=== PATIENT | female | born 1970 | race Hispanic/Latino ===

== ENCOUNTER 2018-11-29 17:49 | Emergency (ER) | payer SELFPAY ==
[2018-11-29] MEDS ORDERED: predniSONE 20 MG TAB ONE (18:54)
[2018-11-29] MEDS ORDERED: Cyclobenzaprine 10 MG TAB ONE (18:54)
[2018-11-29] MEDS ORDERED: Ketorolac Tromethamine 60 MG/2 ML VIAL ONE (19:09)
== END 2018-11-29 19:20 | disposition home or self-care (01) ==
LOC: SCSER 17:49
DX: M54.12 Radiculopathy, cervical region (principal); M75.52 Bursitis of left shoulder
CPT/HCPCS: 93005; 96372; J1885; J7512

== ENCOUNTER 2020-10-22 12:41 | Observation (INO) | payer OTHER ==
[~2020-10-22 12:41] MED LIST: Iopamidol-370 76% 500 ML 1 ML ONE
[2020-10-22 13:35] LABS: Hemoglobin 14.2 g/dL (12.0-16.0); Mean Corpuscular HGB CONC 34.3 g/dL (32.0-36.0); Mean Corpuscular Hemoglobin 30.4 pg (27.0-31.0); Mean Corpuscular Volume 88.5 fL (78.0-98.0); Mean Platelet Volume 9.5 fL (7.4-10.4); Platelet Count 159 thou/uL (130-400); Red Blood Cell (RBC) Count 4.68 mill/uL (4.20-5.40); White Blood Cell (WBC) Count 3.9 thou/uL (4.8-10.8)
[2020-10-22 13:51] LABS: ALT (SGPT) 15 U/L (8-55); AST (SGOT) 20 U/L (5-34); Alkaline Phosphatase 96 U/L (40-110); Anion Gap 13 mmol/L (10-20); BUN (Urea Nitrogen) 6 mg/dL (7.0-18.7); Bilirubin, Total 0.3 mg/dL (0.2-1.2); Calc. Creatinine Clearance 0 mL/min (70-130); Carbon Dioxide 27 mmol/L (22-29); Chloride 105 mmol/L (98-107); Globulin 3.5 g/dL (2.4-3.5); Glucose 101 mg/dL (70-105); Potassium 3.7 mmol/L (3.5-5.1); Protein, Total 7.5 g/dL (6.0-8.3); Sodium 141 mmol/L (136-145)
[2020-10-22 13:56] LABS: Band 3 % (5-11); Lymphocytes 28 % (21-51); MDiff Complete? YES; Monocytes 16 % (0-10); Neutrophil 42 % (42-75); Platelet Morphology Comment Appears Adequate; RBC Morphology Normal; Reactive Lymphocytes 11 % (0-10)
[2020-10-22] MEDS ORDERED: Metoclopramide HCl 10 MG/2 ML VIAL ONE (13:56)
[2020-10-22] MEDS ORDERED: diphenhydrAMINE 50 MG/ML VIAL ONE (13:56)
[2020-10-22] MEDS ORDERED: Ketorolac Tromethamine 30 MG/ML VIAL ONE (13:56)
[2020-10-22] MEDS ORDERED: Aspirin 325 MG TAB ONE (18:26)
[2020-10-22 20:44] VITALS: BMI 26.8
[2020-10-22] MEDS ORDERED: Ondansetron PF 4 MG/2 ML Vial IVP PRN (22:03)
[2020-10-22] MEDS ORDERED: Ondansetron ODT 4 MG TAB PO PRN (22:03)
[2020-10-22] MEDS ORDERED: Acetaminophen 325 MG TAB PO PRN (22:03)
[2020-10-22] MEDS: HYDROcodone/Acetaminophen 5/325 mg Tablet PO PRN (22:42)
[2020-10-23] MEDS: HYDROcodone/Acetaminophen 5/325 mg Tablet PO PRN ×3 (04:50→13:16)
[2020-10-23 05:01] LABS: Hemoglobin 12.7 g/dL (12.0-16.0); Mean Corpuscular HGB CONC 34.3 g/dL (32.0-36.0); Mean Corpuscular Hemoglobin 30.6 pg (27.0-31.0); Mean Corpuscular Volume 89.3 fL (78.0-98.0); Mean Platelet Volume 9.6 fL (7.4-10.4); Platelet Count 154 thou/uL (130-400); Red Blood Cell (RBC) Count 4.15 mill/uL (4.20-5.40); White Blood Cell (WBC) Count 4.5 thou/uL (4.8-10.8)
[2020-10-23 05:15] LABS: Anion Gap 13 mmol/L (10-20); BUN (Urea Nitrogen) 11 mg/dL (7.0-18.7); Calc. Creatinine Clearance 111 mL/min (70-130); Calcium 8.8 mg/dL (7.8-10.44); Carbon Dioxide 28 mmol/L (22-29); Cardiac Risk 4.1 (Less than 4.5); Chloride 105 mmol/L (98-107); Cholesterol 157 mg/dl (< 200 Desired); Glucose 102 mg/dL (70-105); HDL Cholesterol 38 mg/dL (>60 Neg Risk); LDL Cholesterol, Calculated 94 mg/dL; Potassium 3.5 mmol/L (3.5-5.1); Sodium 142 mmol/L (136-145); Triglycerides 126 mg/dL (Less than 150)
[2020-10-23 05:38] LABS: Eosinophils 2 % (0-10); Lymphocytes 64 % (21-51); MDiff Complete? YES; Monocytes 6 % (0-10); Neutrophil 28 % (42-75); Platelet Morphology Comment Appears Adequate; RBC Morphology Normal
[2020-10-23 08:02] LABS: SARS-CoV-2 NAA Rapid Test Not Detected (NotDetected)
[2020-10-23] MEDS ORDERED: Aspirin 81 mg Enteric Coated Tablet PO SCH (09:00)
[2020-10-23] MEDS ORDERED: Enoxaparin Sodium 40 MG/0.4 ML SYRINGE SC SCH (09:00)
[2020-10-23 11:32] VITALS: TEMP 98.2
[2020-10-23 11:35] VITALS: BP 164/74
== END 2020-10-23 14:03 | disposition home or self-care (01) ==
LOC: ERS 12:41 → 2SE 18:36
PROVIDERS: ADMIT Internal Medicine; ATTEND Internal Medicine
DX: G51.0 Bell's palsy (principal); T50.B95A Adverse effect of other viral vaccines, initial encounter; I08.1 Rheumatic disorders of both mitral and tricuspid valves; Z20.822 Contact with and (suspected) exposure to COVID-19; Z79.899 Other long term (current) drug therapy; Z86.69 Personal history of other diseases of the nervous system and sense organs
CPT/HCPCS: 36415; 70496; 70498; 70551; 71045; 80048; 80053; 80061; 84484; 85025; 93005; 93306; 96365; 96372; 96375; G0378; J1200; J1650; J1885; J2765; Q9967; U0002; U0005